=== PATIENT | male | born 1965 | race Caucasian/White ===

== ENCOUNTER 2025-03-20 15:35 | Inpatient (IN) | payer BC ==
[~2025-03-20 15:35] MED LIST: Iopamidol-370 76% 500 ML MDV (1 ML CHARGE) ONE
[2025-03-20 16:03] LABS: #Basophils 0.04 10x3/uL (0.0-0.2); #Eosinophils 0.23 10x3/uL (0.0-0.7); #Monocytes 1.31 10x3/uL (0.11-0.59); #Neutrophils 7.24 10x3/uL (1.40-6.50); %Basophils 0.4 % (0.0-1.0); %Eosinophils 2.1 % (0.0-10.0); %Lymphocytes 19.1 % (21.0-51.0); %Monocytes 11.9 % (0.0-10.0); %Neutrophils 66.0 % (42.0-75.0); Hematocrit 38.4 % (42.0-52.0); Hemoglobin 12.4 g/dL (14.0-18.0); Mean Corpuscular Hemoglobin 28.7 pg (27.0-31.0); Mean Corpuscular Volume 88.9 fL (78.0-98.0); Platelet Count 193 10x3/uL (130-400); Red Blood Cell (RBC) Count 4.32 mill/uL (4.70-6.10); White Blood Cell (WBC) Count 10.97 10x3/uL (4.8-10.8)
[2025-03-20 16:17] LABS: ALT (SGPT) 18 U/L (Less than 45); AST (SGOT) 19 U/L (11-34); Albumin 3.2 g/dL (3.1-4.5); Alkaline Phosphatase 55 U/L (40-110); Anion Gap 12 mmol/L (10-20); BUN (Urea Nitrogen) 11 mg/dL (8.4-25.7); Bilirubin, Total 0.4 mg/dL (0.3-1.2); Calc. Creatinine Clearance 0 mL/min (70-130); Calcium 8.0 mg/dL (7.8-10.44); Carbon Dioxide 25 mmol/L (22-29); Chloride 104 mmol/L (98-107); Globulin 2.9 g/dL (2.4-3.5); Glucose 101 mg/dL (70-105); Potassium 3.7 mmol/L (3.5-5.1); Sodium 137 mmol/L (136-145)
[2025-03-20 17:37] LABS: INR-International Normal Ratio 1.1; Prothrombin Time 14.6 sec (12.0-14.7)
[2025-03-20 17:38] LABS: PTT 33.4 sec (22.9-36.1)
[2025-03-20] MEDS ORDERED: Calcium Carbonate 500 MG ChewTAB PO PRN (17:48)
[2025-03-20] MEDS ORDERED: Ondansetron PF 4 MG/2 ML Vial IVP PRN (17:48)
[2025-03-20] MEDS ORDERED: Senokot S 8.6-50 MG TAB PO PRN (17:48)
[2025-03-20 18:52] LABS: Hematocrit 37.9 % (42.0-52.0); Hemoglobin 12.6 g/dL (14.0-18.0); Platelet Count 196 10x3/uL (130-400)
[2025-03-21 00:20] VITALS: BMI 33.2
[2025-03-21 04:37] LABS: #Basophils 0.03 10x3/uL (0.0-0.2); #Eosinophils 0.15 10x3/uL (0.0-0.7); #Monocytes 1.49 10x3/uL (0.11-0.59); #Neutrophils 7.54 10x3/uL (1.40-6.50); %Basophils 0.3 % (0.0-1.0); %Eosinophils 1.3 % (0.0-10.0); %Lymphocytes 21.4 % (21.0-51.0); %Monocytes 12.6 % (0.0-10.0); %Neutrophils 64.0 % (42.0-75.0); Hematocrit 40.0 % (42.0-52.0); Hemoglobin 12.9 g/dL (14.0-18.0); Mean Corpuscular Hemoglobin 28.7 pg (27.0-31.0); Mean Corpuscular Volume 89.1 fL (78.0-98.0); Platelet Count 192 10x3/uL (130-400); Red Blood Cell (RBC) Count 4.49 mill/uL (4.70-6.10); White Blood Cell (WBC) Count 11.78 10x3/uL (4.8-10.8)
[2025-03-21 04:49] LABS: ALT (SGPT) 16 U/L (Less than 45); AST (SGOT) 20 U/L (11-34); Albumin 3.1 g/dL (3.1-4.5); Alkaline Phosphatase 55 U/L (40-110); Anion Gap 13 mmol/L (10-20); BUN (Urea Nitrogen) 8 mg/dL (8.4-25.7); Bilirubin, Total 0.6 mg/dL (0.3-1.2); Calc. Creatinine Clearance 209 mL/min (70-130); Calcium 8.3 mg/dL (7.8-10.44); Carbon Dioxide 24 mmol/L (22-29); Chloride 104 mmol/L (98-107); Globulin 3.2 g/dL (2.4-3.5); Glucose 102 mg/dL (70-105); Potassium 4.2 mmol/L (3.5-5.1); Sodium 137 mmol/L (136-145)
[2025-03-21 08:25] LABS: PTT 123.8 sec (22.9-36.1)
[2025-03-21] MEDS: Heparin 10,000 UNITS/ 10 ML VIAL SLOW IVP SCH (20:16)
[2025-03-22] MEDS: Cyclobenzaprine 10 MG TAB PO SCH (00:29)
[2025-03-22 04:50] LABS: PTT 158.7 sec (22.9-36.1)
[2025-03-22] MEDS: Transdermal Patch Removal TOP SCH (10:19)
[2025-03-22 20:41] LABS: Hematocrit 39.4 % (42.0-52.0); Hemoglobin 12.7 g/dL (14.0-18.0); Platelet Count 233 10x3/uL (130-400)
[2025-03-22] MEDS: Cyclobenzaprine 10 MG TAB PO PRN (21:33)
[2025-03-23 04:21] LABS: #Basophils 0.06 10x3/uL (0.0-0.2); #Eosinophils 0.20 10x3/uL (0.0-0.7); #Monocytes 1.93 10x3/uL (0.11-0.59); #Neutrophils 8.56 10x3/uL (1.40-6.50); %Basophils 0.5 % (0.0-1.0); %Eosinophils 1.5 % (0.0-10.0); %Lymphocytes 16.3 % (21.0-51.0); %Monocytes 14.9 % (0.0-10.0); %Neutrophils 66.3 % (42.0-75.0); Hematocrit 38.8 % (42.0-52.0); Hemoglobin 12.5 g/dL (14.0-18.0); Mean Corpuscular Hemoglobin 28.7 pg (27.0-31.0); Mean Corpuscular Volume 89.2 fL (78.0-98.0); Platelet Count 242 10x3/uL (130-400); Red Blood Cell (RBC) Count 4.35 mill/uL (4.70-6.10); White Blood Cell (WBC) Count 12.91 10x3/uL (4.8-10.8)
[2025-03-23 04:32] LABS: Anion Gap 15 mmol/L (10-20); BUN (Urea Nitrogen) 6 mg/dL (8.4-25.7); Calc. Creatinine Clearance 218 mL/min (70-130); Calcium 8.6 mg/dL (7.8-10.44); Carbon Dioxide 22 mmol/L (22-29); Chloride 103 mmol/L (98-107); Glucose 110 mg/dL (70-105); Potassium 3.7 mmol/L (3.5-5.1); Sodium 136 mmol/L (136-145)
[2025-03-23] MEDS: Apixaban 5 MG TAB PO SCH (17:18)
[2025-03-23] MEDS: guaiFENesin/DM ER PO SCH (21:56)
[2025-03-24] MEDS ORDERED: Apixaban 5 MG TAB PO SCH (09:00)
[2025-03-24] MEDS: Apixaban 5 MG TAB PO SCH (10:01)
[2025-03-24 12:30] VITALS: BP 112/77; TEMP 98.1
[2025-03-24] MEDS: Acetaminophen 325 MG TAB PO PRN (13:38)
[2025-03-30] MEDS ORDERED: Apixaban 5 MG TAB PO SCH (21:00)
== END 2025-03-24 14:58 | disposition home or self-care (01) | DRG 176 ==
LOC: SUATTDRO 15:35 → ERS 15:35 → PCU 17:47 → OBSVTOIN 03-21 18:22
PROVIDERS: ADMIT Internal Medicine; ATTEND Student in an Organized Health Care Education/Training Program
PROC: 0T9B70Z Drainage of Bladder with Drainage Device, Via Natural or Artificial Opening (ICD-10-PCS; principal; 2025-03-21)
DX: I26.92 Saddle embolus of pulmonary artery without acute cor pulmonale (principal); M19.90 Unspecified osteoarthritis, unspecified site; C61 Malignant neoplasm of prostate; M54.9 Dorsalgia, unspecified; J30.9 Allergic rhinitis, unspecified; I34.0 Nonrheumatic mitral (valve) insufficiency; I36.1 Nonrheumatic tricuspid (valve) insufficiency; F10.90 Alcohol use, unspecified, uncomplicated; Z98.890 Other specified postprocedural states; Z90.49 Acquired absence of other specified parts of digestive tract; Z90.79 Acquired absence of other genital organ(s)
CPT/HCPCS: 36415; 70450; 71045; 71275; 72125; 74177; 80048; 80053; 83605; 83880; 84484; 85014; 85018; 85025; 85049; 85610; 85730; 87040; 87077; 87149; 93005; 93306; 96361; 96374; G0378; J1644; J7030; Q9967